=== PATIENT | male | born 1975 | race Caucasian/White ===

== ENCOUNTER → 2020-07-13 | Outpatient (CLI) | payer BC | LOC: LAB 17:56 | PROVIDERS: ATTEND Nurse Practitioner Family | DX: R07.9 Chest pain, unspecified (principal) | CPT/HCPCS: 36415; 82553; 84484; 85379 ==

== ENCOUNTER → 2021-06-14 | Outpatient (CLI) | payer BC ==
--- NOTE | 2021-06-14 11:35 | Diagnostic Imaging Report ---
PROCEDURE: US Renal Bilateral. TECHNIQUE: Multiple Real-time grayscale images were obtained over the kidneys in various projections bilaterally. INDICATION: Hypertensive urgency. Low GFR. COMPARISON: None. FINDINGS: The right kidney measures 9.4 cm in length. There is no hydronephrosis. The cortex appears normal. No shadowing calculi or masses are seen. The left kidney measures 11.5 cm in length. There is no hydronephrosis. The cortex appears normal. No shadowing calculi or masses are seen. The urinary bladder appears normal. Bilateral ureteral jets are seen. No filling defect or debris is evident. IMPRESSION: Normal renal ultrasound. Dictated by: Dictated on workstation # [id number]
== END ==
LOC: RAD 10:15
PROVIDERS: ATTEND Family Medicine
DX: I16.0 Hypertensive urgency (principal); N28.9 Disorder of kidney and ureter, unspecified
CPT/HCPCS: 76770

== ENCOUNTER → 2021-06-26 | Outpatient (CLI) | payer BC ==
--- NOTE | 2021-06-26 17:06 | Diagnostic Imaging Report ---
INDICATION: DISORDERS OF KIDNEY AND URETER, HYPERTENSIVE URGENCY TECHNIQUE: Multiple real-time grayscale sonographic images, color and duplex Doppler images were obtained of the urinary system. FINDINGS: Aortic velocity: 108 cm/sec. RIGHT kidney: Size: 10.5 x 4.9 x 5.3 cm The right renal parenchyma and collecting system appear unremarkable. The right renal artery is visualized in its proximal, mid and distal aspect. Maximum renal artery velocity: 51.6cm/sec Maximum renal artery/aortic ratio: 0.48 LEFT kidney: Size: 12.2 x 5.5 x 5.2 cm The left renal parenchyma and collecting system appear unremarkable. The left renal artery is visualized in its proximal, mid and distal aspect. Maximum renal artery velocity: 73.1cm/sec Maximum renal artery/aortic ratio: 0.68 Bladder: Not imaged. IMPRESSION: 1. Unremarkable renal ultrasound with doppler. (RA/AO ratios > 3.0 may suggest potential hemodynamically significant stenosis.) Dictated by: Dictated on workstation # [id number]
== END ==
LOC: RAD 08:45
PROVIDERS: ATTEND Family Medicine
DX: Z00.01 Encounter for general adult medical examination with abnormal findings (principal); I16.0 Hypertensive urgency; N28.9 Disorder of kidney and ureter, unspecified; R79.89 Other specified abnormal findings of blood chemistry
CPT/HCPCS: 76770; 93975